=== PATIENT | male | born 1985 | race Caucasian/White ===

== ENCOUNTER 2016-11-08 21:34 | Emergency (ER) | payer OTHER ==
[~2016-11-08] VITALS: Ht 167.6 cm; Wt 79.4 kg
[~2016-11-08 21:34] MED LIST: NKM
[2016-11-08] MEDS ORDERED: DiphenhydrAMINE 50mg/ml Inj IM ONE (21:45)
[2016-11-08] MEDS ORDERED: Haloperidol 5mg/ml Inj IM ONE (21:45)
[2016-11-08 22:46] LABS: MEAN CORPUSCULAR HEMOGLOBIN 30.8 PG (27.0-31.0); MEAN CORPUSCULAR HGB CONC 33.3 G/DL (32.0-36.0); MEAN CORPUSCULAR VOLUME 92 FL (80-99); PLATELET COUNT 217 K/UL (150-450); RED BLOOD COUNT 4.46 M/UL (4.70-6.10); RED CELL DISTRIBUTION WIDTH 12.1 % (11.6-14.8); WHITE BLOOD COUNT 19.3 K/UL (4.8-10.8)
[2016-11-08 23:04] LABS: ACETAMINOPHEN < 10 ug/mL (10-30); ALANINE AMINOTRANSFERASE 37 U/L (3-41); ALBUMIN/GLOBULIN RATIO 1.7 (1.0-2.7); ALCOHOL < 10 mg/dL; ANION GAP 21 (5-15); ASPARTATE AMINO TRANSFERASE 40 U/L (5-40); CALCIUM 9.6 mg/dL (8.6-10.2); CARBON DIOXIDE 24 mEQ/L (20-30); CHLORIDE 96 mEQ/L (98-107); CREATININE 1.3 mg/dL (0.7-1.2); GLOMERULAR FILTRATION RATE > 60 mL/min (>60); HEMOLYSIS 4; POTASSIUM 3.7 mEQ/L (3.4-4.9); SODIUM 141 mEQ/L (135-145); TOTAL PROTEIN 7.3 g/dL (6.6-8.7)
[2016-11-08 23:14] LABS: BAND NEUTROPHILS % (MANUAL) 3 % (0-8); BASOPHILS % (MANUAL) 0 % (0-2); EOSINOPHILS % (MANUAL) 0 % (0-3); LYMPHOCYTES % (MANUAL) 22 % (20-45); NEUTROPHILS % (MANUAL) 69 % (45-75); PLATELET ESTIMATE ADEQUATE; PLATELET MORPHOLOGY NORMAL; TOTAL CELLS COUNTED 100
[2016-11-08 23:25] LABS: BILIRUBIN,DIRECT 0.3 mg/dL (0.1-0.3)
--- NOTE | 2016-11-09 02:56 | Emergency Room Report ---
History of Present Illness General Chief Complaint: Behavioral Complaint Source: Patient, EMS Present Illness HPI Patient is a 30-year-old male brought in by EMS after increased agitation. Patient was found yelling at people on the street. Patient reportedly had the stated that he smoked methamphetamine patient was brought in by EMS as well as [employer]. The patient was noted to be somewhat agitated. He was not currently under custody. The patient was noted to have prior history of psychiatric disease and had been taking Seroquel in the past but has not been on medications for a prolonged period time. Allergies: Coded Allergies: No Known Allergies (Unverified , 01/21/13) Patient History Past Medical History: see triage record Reviewed Nursing Documentation: PMH: Agreed, PSxH: Agreed Nursing Documentation-PMH Past Medical History: No History, Except For History Of Psychiatric Problem: Yes - PSYCH Review of Systems All Other Systems: limited - by poor cooperation Physical Exam Vital Signs Date Time Temp Pulse Resp B/P Pulse Ox O2 Delivery O2 Flow Rate FiO2 11/08/16 21:52 98.6 110 18 134/86 100 Room Air Sp02 EP Interpretation: reviewed, normal General Appearance: alert/responsive, no apparent distress, GCS 15, non-toxic Head: atraumatic Eyes: PERRL, lids + conjunctiva normal ENT: hearing intact, no angioedema Neck: supple/symm/no masses, no meningismus Respiratory: effort normal, no wheezing, chest symmetrical Cardiovascular: regular rate, rhythm, no edema Cardiovascular #2: 2+ carotid (R), 2+ carotid (L), 2+ dorsalis pedis (R), 2+ dorsalis pedis (L) Gastrointestinal: non-tender, no mass, non-distended, no rebound/guarding, normal bowel sounds Musculoskeletal: gait & station normal, strength & tone normal, normal ROM, non -tender Neurologic: oriented x3, sensory intact, normal speech Skin: no rash, well hydrated Lymphatic: normal inspection Medical Decision Making Diagnostic Impression: Primary Impression: Substance abuse ER Course Patient presented for agitation. Differential diagnoses include substance abuse, psychosis, bipolar disorder, depression, malingering. The patient appears be intoxicated with methamphetamine. Laboratory studies were notable for elevated white blood count. Patient was given antipsychotic medication for sedation. Repeat white blood count was noted be improved. The patient was noted to have urine drug screen positive for methamphetamine. The patient had marked improvement in his agitation after medications. The patient subsequently left the hospital without notifying staff. The patient appeared be capable of self care prior to elopement. Labs Test 11/08/16 22:18 11/09/16 03:20 11/09/16 05:30 Differential Total Cells Counted 100 Neutrophils % (Manual) 69 % (45-75) Lymphocytes % (Manual) 22 % (20-45) Monocytes % (Manual) 6 % (1-10) Eosinophils % (Manual) 0 % (0-3) Basophils % (Manual) 0 % (0-2) Band Neutrophils 3 % (0-8) Platelet Estimate Adequate Platelet Morphology Normal Red Blood Cell Morphology Normal Sodium Level 141 mEQ/L (135-145) Potassium Level 3.7 mEQ/L (3.4-4.9) Chloride Level 96 mEQ/L (98-107) Carbon Dioxide Level 24 mEQ/L (20-30) Anion Gap 21 (5-15) Blood Urea Nitrogen 30 mg/dL (7-23) Creatinine 1.3 mg/dL (0.7-1.2) Estimat Glomerular Filtration Rate > 60 mL/min (>60) Glucose Level 92 mg/dL (74-106) Calcium Level 9.6 mg/dL (8.6-10.2) Total Bilirubin 2.3 mg/dL (0.0-1.2) Direct Bilirubin 0.3 mg/dL (0.1-0.3) Aspartate Amino Transf (AST/SGOT) 40 U/L (5-40) Alanine Aminotransferase (ALT/SGPT) 37 U/L (3-41) Alkaline Phosphatase 79 U/L (40-129) Total Protein 7.3 g/dL (6.6-8.7) Albumin 4.6 g/dL (3.5-5.2) Globulin 2.7 g/dL Albumin/Globulin Ratio 1.7 (1.0-2.7) Salicylates Level < 1 mg/dL (10-30) Acetaminophen Level < 10 ug/mL (10-30) Serum Alcohol < 10 mg/dL Urine Color Yellow Urine Appearance Clear Urine pH 5 (4.5-8.0) Urine Specific [place] 1.025 (1.005-1.035) Urine Protein Negative (NEGATIVE) Urine Glucose (UA) Negative (NEGATIVE) Urine Ketones 3+ (NEGATIVE) Urine Occult Blood Negative (NEGATIVE) Urine Nitrite Negative (NEGATIVE) Urine Bilirubin Negative (NEGATIVE) Urine Urobilinogen Normal MG/DL (0.0-1.0) Urine Leukocyte Esterase Negative (NEGATIVE) Urine Opiates Screen Negative (NEGATIVE) Urine Barbiturates Screen Negative (NEGATIVE) Phencyclidine (PCP) Screen Negative (NEGATIVE) Urine Amphetamines Screen Positive (NEGATIVE) Urine Benzodiazepines Screen Negative (NEGATIVE) Urine Cocaine Screen Negative (NEGATIVE) Urine Marijuana (THC) Screen Positive (NEGATIVE) White Blood Count 11.8 K/UL (4.8-10.8) Red Blood Count 4.65 M/UL (4.70-6.10) Hemoglobin 14.1 G/DL (14.2-18.0) Hematocrit 42.5 % (42.0-52.0) Mean Corpuscular Volume 91 FL (80-99) Mean Corpuscular Hemoglobin 30.3 PG (27.0-31.0) Mean Corpuscular Hemoglobin Concent 33.2 G/DL (32.0-36.0) Red Cell Distribution Width 11.9 % (11.6-14.8) Platelet Count 223 K/UL (150-450) Mean Platelet Volume 7.8 FL (6.5-10.1) Neutrophils (%) (Auto) 64.7 % (45.0-75.0) Lymphocytes (%) (Auto) 22.4 % (20.0-45.0) Monocytes (%) (Auto) 10.9 % (1.0-10.0) Eosinophils (%) (Auto) 1.2 % (0.0-3.0) Basophils (%) (Auto) 0.8 % (0.0-2.0) Last Vital Signs Date Time Temp Pulse Resp B/P Pulse Ox O2 Delivery O2 Flow Rate FiO2 11/08/16 21:52 98.6 110 18 134/86 100 Room Air Status: improved Disposition: ELOPED Condition: Stable Referrals: Brian ACOSTAREFERRING (PCP) Gunner Cook Nov 09, 2016 02:56
[2016-11-09 03:16] VITALS: BP 134/86
[2016-11-09 03:34] LABS: APPEARANCE,URINE CLEAR; KETONES,URINE 3+ (NEGATIVE); LEUKOCYTE ESTERASE ,URINE NEGATIVE (NEGATIVE); NITRITE,URINE NEGATIVE (NEGATIVE); PH,URINE 5 (4.5-8.0); PROTEIN,URINE NEGATIVE (NEGATIVE); UROBILINOGEN,URINE NORMAL MG/DL (0.0-1.0)
[2016-11-09 05:42] LABS: BASOPHILS % (AUTO) 0.8 % (0.0-2.0); EOSINOPHILS % (AUTO) 1.2 % (0.0-3.0); LYMPHOCYTES % (AUTO) 22.4 % (20.0-45.0); MEAN CORPUSCULAR HEMOGLOBIN 30.3 PG (27.0-31.0); MEAN CORPUSCULAR HGB CONC 33.2 G/DL (32.0-36.0); MEAN CORPUSCULAR VOLUME 91 FL (80-99); MEAN PLATELET VOLUME 7.8 FL (6.5-10.1); MONOCYTES % (AUTO) 10.9 % (1.0-10.0); NEUTROPHILS % (AUTO) 64.7 % (45.0-75.0); PLATELET COUNT 223 K/UL (150-450); RED BLOOD COUNT 4.65 M/UL (4.70-6.10); RED CELL DISTRIBUTION WIDTH 11.9 % (11.6-14.8); WHITE BLOOD COUNT 11.8 K/UL (4.8-10.8)
[2016-11-09 06:35] VITALS: BP 103/67
[2016-11-09 12:00] VITALS: BP 112/57
[2016-11-09 16:12] VITALS: BP 0/0
--- NOTE | 2016-11-10 02:58 | Consultation ---
DATE OF CONSULTATION: 11/09/2016 HISTORY OF PRESENT ILLNESS: The patient is a 30-year-old male who was brought in via EMS after being agitated and aggressive. The patient was found yelling and screaming in the street. The patient was brought into the emergency room via EMS and [employer]. During the evaluation, the patient was yelling and screaming, using profanity, and telling me to leave the room. Therefore admitted During evaluation, the patient appeared to be angry and agitated. We offered him sweet and drink. He was not noted to respond to internal stimuli. He, however, endorsed delusions, and during the evaluation the patient stated, The patient stated that recently he has broken up with the boyfriend. Therefore, the boyfriend is asking to leave. He has relapsed on crystal methamphetamine and has been smoking . PAST PSYCHIATRIC HISTORY: Unknown. He does not have any psychiatric history including schizophrenia or bipolar disorder. PAST MEDICAL HISTORY: None. ALLERGIES: No known drug allergies. SUBSTANCE USE HISTORY: Significant for crystal methamphetamine and marijuana. MENTAL STATUS EXAMINATION: The patient is alert and oriented x3. He is uncooperative and volatile. His mood is angry. Affect is constricted and congruent mood. Thought process was concrete. Thought content, there was no suicidal or homicidal ideation. Positive for delusions. Insight and judgment are impaired. ASSESSMENT: AXIS I: 1. Crystal methamphetamine abuse. 2. Substance-induced psychosis. AXIS II: Deferred. AXIS III: None. AXIS IV: Low. AXIS V: 40. PLAN: We will administer risperidone p.o. one time, and we will reassess. If the patient's condition did not improve, the patient may be admitted to the psychiatric unit. However, it appears his current condition is substance induced, and the patient is not suicidal or homicidal. Anneliese Hutton M.D. DR: ASHWINI JOB#: [id number] CC:
== END 2016-11-09 16:14 | disposition left against medical advice (07) ==
LOC: EDBD 21:34 → EMR 22:00
DX: F15.10 Other stimulant abuse, uncomplicated (principal); R45.1 Restlessness and agitation
CPT/HCPCS: 36415; 80053; 80300; 80329; 81003; 82248; 85007; 85025; 96372; 99284; J1200; J1630